=== PATIENT | female | born 1975 | race Caucasian/White ===

== ENCOUNTER 2021-10-18 15:14 | Emergency (ER) | payer OTHER, MEDICAID ==
[~2021-10-18] VITALS: Ht 167.6 cm; Wt 117.9 kg
[~2021-10-18 15:14] MED LIST: ACETAMINOPHEN-1 EAC1 PO; ALEVE220 M1 PO; BACTRIM DS TAB1 EACH PO; CIPROFLOXACIN500 M1 PO; CLEOCIN HCL150 MG PO; COLACE100 MG PO; HYDROCHLOROTHIA25 M1; HYDROCODONE-AP1 EAC6 PO; IBUPROFEN 200200 M1 PO; IBUPROFEN 600600 M1 PO; IBUPROFEN 800800 M1; LISINOPRIL10 MG; NORCO 5-325 TA1 EACH PO; NORFLEX100 MG PO; PHENERGAN 25 MG25 M1 PO; TAMSULOSIN HCL0.4 M1 PER TUBE; ULTRAM 50MG TAB50 MG PO; ZOFRAN ODT4 MG PO
[2021-10-18] MEDS ORDERED: LISINOPRIL10 MG PO (15:21)
[2021-10-18] MEDS ORDERED: DIUREX WATER P1 EACH PO (15:21)
[2021-10-18 18:45] VITALS: BP 199/98
== END 2021-10-18 18:45 | disposition left against medical advice (07) ==
LOC: M.ERS 15:14
DX: M79.89 Other specified soft tissue disorders (principal); F17.210 Nicotine dependence, cigarettes, uncomplicated; Z87.442 Personal history of urinary calculi; Z90.49 Acquired absence of other specified parts of digestive tract; Z88.5 Allergy status to narcotic agent; Z88.6 Allergy status to analgesic agent; Z88.0 Allergy status to penicillin